=== PATIENT | male | born 1995 | race African-American/Black ===

== ENCOUNTER 2017-09-23 04:52 | Emergency (ER) | payer OTHER ==
[~2017-09-23] VITALS: Ht 172.7 cm; Wt 74.8 kg
[2017-09-23 05:05] VITALS: BP 157/86
[2017-09-23] MEDS ORDERED: IBUPROFEN 600 MG TAB PO ONE (06:45)
== END 2017-09-23 07:09 | disposition home or self-care (01) ==
LOC: ER 04:56
DX: S93.402A Sprain of unspecified ligament of left ankle, initial encounter (principal); W22.8XXA Striking against or struck by other objects, initial encounter; Y93.89 Activity, other specified; Y99.8 Other external cause status; Y92.89 Other specified places as the place of occurrence of the external cause
CPT/HCPCS: 73610